=== PATIENT | male | born 1955 | race Caucasian/White ===

== ENCOUNTER 2017-01-18 16:11 | Emergency (ER) | payer OTHER ==
[~2017-01-18] VITALS: Ht 182.9 cm; Wt 106.6 kg
[2017-01-18 16:39] VITALS: Ht 182.9 cm; Wt 106.6 kg
[2017-01-18] MEDS ORDERED: GABA300C16 PO (19:39)
[2017-01-18] MEDS ORDERED: OXYC-209 PO (19:39)
--- NOTE | 2017-01-18 19:54 | ERD ---
ER Documentation Chief Complaint Chief Complaint right arm pain x 1 year, waiting for surgery, worse pain x 2 months HPI 61-year-old male presents to emergency department for complaints of right arm pain for 1 year, history of rotator cuff injury with nerve complication, has been having on and off pain on the right arm, it radiates from the right shoulder to the right arm, is scheduled to have a surgery, waiting for an appointment. Patient has been taking ibuprofen for pain with only mild relief. Patient discussed pain as throbbing pain, 6/10 scale, as was upon movement. Patient did not take any medications to help with symptoms. ROS All systems reviewed and are negative except as per history of present illness. Medications Home Meds Active Scripts Gabapentin* (Gabapentin*) 300 Mg Capsule, 300 MG PO BID, #20 CAP Prov:JERAMY DUARTE NP 01/18/17 Oxycodone HCl/Acetaminophen (Percocet 10-325 mg Tablet) 1 Each Tablet, 1 EACH PO Q6, #10 TAB Prov:JERAMY DUARTE NP 01/18/17 Allergies Allergies: Coded Allergies: No Known Allergy (Unverified , 01/18/17) PMhx/Soc Medical and Surgical Hx: pt denies Medical Hx, pt denies Surgical Hx FmHx Family History: No coronary disease, No diabetes, No other Physical Exam Vitals Vital Signs Date Time Temp Pulse Resp B/P Pulse Ox O2 Delivery O2 Flow Rate FiO2 01/18/17 16:39 98.0 86 18 115/84 96 Physical Exam GENERAL: The patient is well developed and appropriate for usual state of health, in no apparent distress. CHEST: Clear to auscultation bilaterally. There are no rales, wheezes or rhonchi. HEART: Regular rate and rhythm. No murmurs, clicks, rubs or gallops. No S3 or S4. ABDOMEN: Soft, nontender and nondistended. Good bowel sounds. No rebound or guarding. No gross peritonitis. No gross organomegaly or masses. No Burkett sign or McBurney point tenderness. BACK: No midline or flank tenderness. EXTREMITIES: Able to do full range of motion of the right shoulder without energy vision, no deformity. No numbness or tingling. Equal pulses bilaterally. Full range of motion. Grossly neurovascularly intact. NEURO: Alert and oriented. Cranial nerves 2-12 intact. Motor strength in all 4 extremities with 5/5 strength. Sensation grossly intact. Normal speech and gait. SKIN: There is no apparent rash or petechia. The skin is warm and dry. HEMATOLOGIC AND LYMPHATIC: There is no evidence of excessive bruising or lymphedema. No gross cervical, axillary, or inguinal lymphadenopathy. Procedures/MDM Medical Decision Making: Patient's pain is most likely consistent with pain caused by rotator cuff injury. There is no suspicion for neurovascular compromise. Patient has intact sensation and circulation of the affected extremity. There is low suspicion for septic arthritis. Patient does not have any fever. Radiology exams of the affected area does not show any fracture or dislocation. Disposition: Home. Patient is given prescription for Gabapentin, Percocet. Patient was advised to elevate the affected area and apply ice on affected area. Patient was advised that if symptoms are worse, numbness, tingling, high fever, unable to move joint, worsening symptoms, to return to emergency department immediately. Otherwise, patient is advised to follow up with the primary care doctor in 5-7 days for reevaluation of symptoms. Wait orthopedic appointment for surgery Disclaimer: Inadvertent spelling and grammatical errors are likely due to EHR/ dictation software use and do not reflect on the overall quality of patient care. Also, please note that the electronic time recorded on this note does not necessarily reflect the actual time of the patient encounter. Departure Diagnosis: Primary Impression: Chronic arm pain Laterality: right Qualified Code: G89.29 - Chronic pain of right upper extremity Condition: Stable Patient Instructions: Chronic Pain JERAMY DUARTE NP Jan 18, 2017 19:54
[2017-01-18] MEDS ORDERED: ONDANSETRON (ODT) 4 MG TAB ODT STA (19:56)
[2017-01-18] MEDS ORDERED: morphine 10 MG INJ IM ONE (20:00)
[2017-01-18 20:40] VITALS: BP 120/83; PULSE 73; RESP 20; TEMP 98
== END 2017-01-18 20:35 | disposition home or self-care (01) ==
LOC: FTE 16:11
DX: G89.29 Other chronic pain (principal)
CPT/HCPCS: 96372; J2270; Z7502; Z7610

== ENCOUNTER 2017-03-05 10:15 | Day surgery (SDC) | END 2017-03-05 16:38 | disposition home or self-care (01) ==

== ENCOUNTER 2017-09-15 10:55 | Day surgery (SDC) | END 2017-09-15 14:37 | disposition home or self-care (01) ==

== ENCOUNTER 2018-12-01 10:25 | Inpatient (IN) | payer OTHER ==
[2018-12-01] VITALS (33 sets, daily range): BP systolic 108–132; BP diastolic 75–90; PULSE 66–92; RESP 12–20; Ht 182.9 cm; Wt 104.0 kg
[~2018-12-01] VITALS: Ht 182.9 cm; Wt 104.0 kg
[~2018-12-01 10:25] MED LIST: ASPI-903 PO; ATOR40TA68 PO; CEFAZOLIN 2 GM/50 ML (PMX) 50 ML IVPB SCH; DOCU-144 PO; HYDR-3601 PO; POLY17PO6 PO; SOD CHLORIDE 0.9% 1,000 ML IV ONE; TRAZ150T65 PO; atorvastatin; norco; xanax
[2018-12-01] MEDS ORDERED: POLYMYXIN/BACITRACIN 1L IRRIG ONE (12:09)
[2018-12-01] MEDS ORDERED: morphine 2 MG INJ IV PRN ×3 (12:30)
[2018-12-01] MEDS ORDERED: IPRATROPIUM (NEB) 0.5 MG/2.5 ML AMP HHN PRN (12:30)
[2018-12-01] MEDS ORDERED: LABETALOL HCL 20MG INJ IV PRN (12:30)
[2018-12-01] MEDS ORDERED: DIPHENHYDRAMINE 50 MG INJ IV PRN (12:30)
[2018-12-01] MEDS ORDERED: TRIMETHOBENZAMIDE 100 MG/ML VIAL IM PRN (12:30)
[2018-12-01] MEDS ORDERED: hydrALAzine 20 MG INJ IV PRN (12:30)
[2018-12-01] MEDS ORDERED: ALBUTEROL 0.083% (NEB) 2.5 MG/3 ML AMP HHN PRN (12:30)
[2018-12-01] MEDS ORDERED: ONDANSETRON 4 MG INJ IV PRN ×2 (12:30→17:00)
[2018-12-01] MEDS ORDERED: EPHEDrine 25 MG/5 ML SYG IV PRN (12:30)
[2018-12-01] MEDS ORDERED: MEPERIDINE 25 MG INJ IV PRN (12:30)
[2018-12-01] MEDS ORDERED: FENTAnyl 50 MCG/ML VIAL IV PRN ×3 (12:30)
[2018-12-01] MEDS ORDERED: MIDAZOLAM 1 MG/ML 2 ML INJ IV PRN (12:30)
[2018-12-01] MEDS ORDERED: CEFAZOLIN 1 GM INJ ONE (12:31)
[2018-12-01] MEDS ORDERED: GLYCOPYRROLATE 0.4 MG INJ ONE (12:31)
[2018-12-01] MEDS ORDERED: PROPOFOL 20 ML ONE (12:31)
[2018-12-01] MEDS ORDERED: ROCURONIUM 50 MG INJ ONE (12:31)
[2018-12-01] MEDS ORDERED: NEOSTIGMINE 3 MG/3 ML SYRINGE ONE (12:31)
[2018-12-01] MEDS ORDERED: ONDANSETRON 4 MG INJ ONE (12:32)
[2018-12-01] MEDS ORDERED: ROPIVACAINE 0.5 % 30 ML VIAL ONE (12:32)
[2018-12-01] MEDS ORDERED: MIDAZOLAM 1 MG/ML 2 ML INJ ONE (12:32)
[2018-12-01] MEDS ORDERED: DEXAMETHASONE 4 MG/ML 5 ML INJ ONE (12:32)
[2018-12-01] MEDS ORDERED: FENTAnyl 50 MCG/ML VIAL ONE (12:32)
[2018-12-01] MEDS ORDERED: SUGAMMADEX SODIUM 200 MG/2 ML VIAL IV ONE (13:24)
[2018-12-01] MEDS ORDERED: NALOXONE (0.4 MG/ML) INJ IV PRN ×2 (14:30)
[2018-12-01] MEDS: LACTATED RINGER'S 1,000 ML IV SCH ×2 (17:38→23:53)
[2018-12-01] MEDS: morphine 1 MG/ML 30 ML (PCA) IV SCH (17:39)
[2018-12-01] MEDS: CEFAZOLIN 2 GM/50 ML (PMX) 50 ML IVPB SCH (18:39)
[2018-12-01] MEDS ORDERED: KETOROLAC 30 MG INJ IV PRN (23:00)
[2018-12-01] MEDS: traZODone 50 MG TAB PO PRN (23:10)
[2018-12-02] MEDS: morphine 1 MG/ML 30 ML (PCA) IV SCH ×3 (00:37→20:22)
[2018-12-02 02:35] VITALS: BP 126/69; PULSE 104; RESP 20
[2018-12-02] MEDS: CEFAZOLIN 2 GM/50 ML (PMX) 50 ML IVPB SCH ×2 (02:35→10:11)
[2018-12-02] MEDS: LACTATED RINGER'S 1,000 ML IV SCH ×2 (05:30→23:27)
[2018-12-02 08:39] VITALS: BP 112/71; PULSE 83; RESP 18
[2018-12-02 15:51] VITALS: BP 129/78; PULSE 63; RESP 18
[2018-12-02 20:28] VITALS: BP 111/83; PULSE 77; RESP 20
[2018-12-02] MEDS ORDERED: CEPASTAT LOZENGE MT PRN (23:00)
[2018-12-02] MEDS: traZODone 50 MG TAB PO PRN (23:29)
[2018-12-03 02:58] VITALS: BP 114/78; PULSE 80; RESP 17
[2018-12-03] MEDS: morphine 1 MG/ML 30 ML (PCA) IV SCH (05:24)
[2018-12-03] MEDS: LACTATED RINGER'S 1,000 ML IV SCH ×2 (06:45→15:53)
[2018-12-03 07:45] VITALS: BP 127/81; PULSE 74; RESP 18
[2018-12-03] MEDS: POLYETHYLENE GLYCOL 17 GM PACKET PO SCH ×2 (10:30→11:06)
[2018-12-03] MEDS ORDERED: HYDROCODONE/APAP (5/325) TAB PO PRN ×5 (10:30→11:00)
[2018-12-03] MEDS ORDERED: BISACODYL 10 MG SUPP PR ONE (10:30)
[2018-12-03 14:51] VITALS: BP 142/81; PULSE 73; RESP 18
[2018-12-03] MEDS: KETOROLAC 30 MG INJ IV SCH ×2 (15:14→21:30)
[2018-12-03] MEDS ORDERED: KETOROLAC 30 MG INJ IV SCH (17:00)
[2018-12-03] MEDS ORDERED: NA PHOSPHATE/BIPHOS 133 ML ENEMA PR ONE (19:30)
[2018-12-03] MEDS: D5W-0.45 NACL + KCL 20 MEQ 1,000 ML IV SCH (19:52)
[2018-12-03] MEDS: METOCLOPRAMIDE 10 MG INJ IV PRN (20:06)
[2018-12-03 20:44] VITALS: BP 125/85; PULSE 77; RESP 20
[2018-12-04 01:19] VITALS: BP 128/79; PULSE 74; RESP 17
[2018-12-04] MEDS: KETOROLAC 30 MG INJ IV SCH ×4 (03:00→20:39)
[2018-12-04] MEDS: D5W-0.45 NACL + KCL 20 MEQ 1,000 ML IV SCH ×3 (05:00→18:05)
[2018-12-04] MEDS: METOCLOPRAMIDE 10 MG INJ IV PRN ×2 (05:39→15:13)
[2018-12-04] MEDS: PANTOPRAZOLE 40 MG INJ IV SCH (05:39)
[2018-12-04 09:04] VITALS: BP 136/90; PULSE 70; RESP 17
[2018-12-04] MEDS: POLYETHYLENE GLYCOL 17 GM PACKET PO SCH (09:43)
[2018-12-04] MEDS: ACETAMINOPHEN 325 MG TAB PO PRN ×2 (14:06→20:39)
[2018-12-04 15:16] VITALS: BP 149/90; PULSE 73; RESP 17
[2018-12-04 19:33] VITALS: BP_SYST 146; BP_SYST 148; BP_DIAS 89; BP_DIAS 98; PULSE 72; RESP 18
[2018-12-04] MEDS: traZODone 50 MG TAB PO PRN (20:40)
[2018-12-05] MEDS: D5W-0.45 NACL + KCL 20 MEQ 1,000 ML IV SCH ×2 (00:57→03:39)
[2018-12-05 02:11] VITALS: BP 140/98; PULSE 70; RESP 19
[2018-12-05] MEDS: KETOROLAC 30 MG INJ IV SCH ×2 (03:39→09:29)
[2018-12-05] MEDS: PANTOPRAZOLE 40 MG INJ IV SCH (05:56)
[2018-12-05 07:45] VITALS: BP 133/79; PULSE 77; RESP 19
[2018-12-05] MEDS: POLYETHYLENE GLYCOL 17 GM PACKET PO SCH (09:29)
== END 2018-12-05 11:00 | disposition home or self-care (01) | DRG 353 ==
LOC: REC 10:25 → EDSTATUS 13:30 → MS1 15:30
PROVIDERS: ADMIT Internal Medicine; ATTEND Surgery
PROC: 0KXL0Z6 Transfer Left Abdomen Muscle, Transverse Rectus Abdominis Myocutaneous Flap, Open Approach (ICD-10-PCS; 2018-12-01)
PROC: 0KXK0Z6 Transfer Right Abdomen Muscle, Transverse Rectus Abdominis Myocutaneous Flap, Open Approach (ICD-10-PCS; 2018-12-01)
PROC: 0WUF0JZ Supplement Abdominal Wall with Synthetic Substitute, Open Approach (ICD-10-PCS; principal; 2018-12-01 14:00)
DX: K43.6 Other and unspecified ventral hernia with obstruction, without gangrene (principal); Q79.59 Other congenital malformations of abdominal wall; K56.7 Ileus, unspecified; E78.5 Hyperlipidemia, unspecified; D72.829 Elevated white blood cell count, unspecified; D64.9 Anemia, unspecified; R11.0 Nausea; K59.00 Constipation, unspecified
CPT/HCPCS: 74018; 80053; 85025; 88305; C9113; J0690; J1100; J1200; J1885; J2175; J2250; J2270; J2405; J2710; J2765; J2795; J3010; J3480; J7120